=== PATIENT | male | born 1960 | race Caucasian/White ===

== ENCOUNTER 2021-01-04 04:05 | Emergency (ER) | payer BC ==
[2021-01-04 05:00] LABS: HEMOGLOBIN 17.1 gm/dl (14.0-17.5); RED BLOOD COUNT 5.4 M/UL (4.20-5.50); WHITE BLOOD COUNT 10.6 K/UL (4.5-11.0)
[2021-01-04] MEDS ORDERED: PROAIR HFA8.5 GM INH (05:53)
[2021-01-04] MEDS ORDERED: DECADRON6 MG PO (05:53)
[2021-01-04] MEDS ORDERED: VIBRAMYCIN100 MG PO (05:53)
[2021-01-04] MEDS ORDERED: TESSALON PERLE100 MG PO (05:53)
== END 2021-01-04 06:00 | disposition home or self-care (01) ==
LOC: ER1 04:05
PROVIDERS: Emergency Medicine
DX: U07.1 COVID-19 (principal); J12.82 Pneumonia due to coronavirus disease 2019; I10 Essential (primary) hypertension
CPT/HCPCS: 71045; 80053; 85025; 94664; 96374; 99284; J1100